=== PATIENT | female | born 1955 | race Caucasian/White ===

== ENCOUNTER 2016-07-23 09:32 | Emergency (ER) | payer OTHER ==
[~2016-07-23] VITALS: Ht 154.9 cm; Wt 76.2 kg
[~2016-07-23 09:32] MED LIST: FLEXERIL10 MG PO; HYDROCODONE/ACE1 TA1 PO; MEDROL4 M2 PO
--- NOTE | 2016-07-23 09:36 | ED HEADACHE COMPLAINT ---
History of Present Illness General Chief Complaint: Fall Stated Complaint: FALL/HEADACHE Source: patient, family, old records, EMS Exam Limitations: no limitations Vital Signs & Intake/Output Vital Signs & Intake/Output Vital Signs Date Time Temp Pulse Resp B/P Pulse O2 O2 Flow FiO2 Ox Delivery Rate 07/23 1054 97.0 07/23 1041 98.2 94 18 164/80 100 Ventilator 100% 07/23 0947 98 Room Air 07/23 0934 96.1 86 18 140/66 97 Room Air Allergies Coded Allergies: Penicillins (Severe, ANAPHYLACTIC 07/23/16) Reconcile Medications CYCLOBENZAPRINE HCL (Flexeril) 10 MG TAB 1 TAB PO Q8P PRN SPASMS CYCLOBENZAPRINE HCL (Flexeril) 10 MG TAB 1 TAB PO TID SPASMS Avoid operating motor vehicle or heavy machinery Hydrochlorothiazide 12.5 MG CAPSULE 1 CAP PO DAILY BP (Reported) HYDROCODONE/ACETAMINOPHEN (Hydrocodon-Acetaminophen 5-325) 1 TAB TAB 1-2 TAB PO Q8P PRN PAIN HYDROCODONE/ACETAMINOPHEN (Hydrocodon-Acetaminophen 5-325) 1 TAB TAB 1-2 TAB PO Q6P PRN PAIN Methylprednisolone. (Medrol) 4 MG TAB.DS.PK 0 PO DAILY ALLERGIC REACTINO USE DIRECTED Rosuvastatin Calcium (Crestor) 5 MG TABLET 1 TAB PO DAILY CHOLESTEROL ( Reported) Topiramate 25 MG TABLET 1 TAB PO BID WT LOSS (Reported) Triage Nurses Notes Reviewed? yes Onset: Abrupt Duration: hour(s): (2), constant Timing: recent history Quality/Severity: moderate, severe, achy, constant Severity Numbers: 7 Head Injury Location: frontal (left) No Modifying Factors: none Associated Symptoms: SYNCOPE IN BATHROOM AFTER HEADACHE BEGAN HPI: 61 year old female history of htn, hld presents emergency room brought in by ambulance. According to the patient she developed sudden onset of a left-sided headache that came on at 8 AM this morning while at work. She states she had a coworker drive her home when she had a witnessed syncopal episode. the patient was awake on ems arrival. According to the patient's she has been at her baseline mentally. There was no other injury the patient denies any other complaints of pain at this time, no neck or back pain. She denies any vomiting however reports positive nausea. She has not taken anything for her headache, according to the patient she denies history of migraines or headaches in the past fever no chills no vision changes. There are no modifying factors or associated symptoms (ELODIA ROBINS) Past History Travel History Traveled to [place] past 21 day No Medical History Any Pertinent Medical History? 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 No (ELODIA ROBINS) Review of Systems Review of Systems Constitutional: Reports: see HPI. All Other Systems: Reviewed and Negative Comments Review of systems: See HPI, All other systems negative. Constitutional, no chills no fever, no malaise HEENT: No visual changes no sore throat no congestion, no ear pain Cardiovascular: No chest pain , no palpitation , Skin, no jaundice no rashes, no change in skin Respiratory: No dyspnea no cough no sputum no hemoptysis GI: nausea no vomiting, no diarrhea, : No dysuria No hematuria, no frequency, no discharge Muscle skeletal: No joint pain, no joint swelling, no back pain, no neck pain, Neurologic: No numbness no confusion, headache Psych: No stress no anxiety no depression,. Heme/endocrine: No bruising no bleeding Immunology: No lymphadenopathy, (ELODIA ROBINS) Physical Exam Physical Exam General Appearance: well developed/nourished, alert, awake Cranial Nerves: normal hearing, normal speech, PERRL Comments: Well-developed well-nourished person in no acute distress Head/Face: Atraumatic, no maxillary/frontal sinus tenderness, no facial swelling , no scalp tendnerss, no hematoma, no ecchymosis, no facial bruising Eyes: PERRL, EOMI, no conjunctival injection. No nystagmus Ear:External auditory canal and Tympanic membranes clear, no erythema, no FB.No hemotypanum Nose: atraumatic.Normal inspection: No bleeding, no septal hematoma Throat: Moist mucous membranes.Pharynx normal. No pharyngeal erythema/exudate seen. No stridor/drooling or assymetry. No swelling or edema. Neck: Supple, no lymphadenopathy, FROM Back: Nontender, no CVA tenderness. Full range of motion Cardiovascular: Regular rate and rhythms no murmurs rubs Respiratory: No respiratory distress. Patient speaking in full complete sentences. Breath sounds clear to auscultation bilaterally: NO W/R/R Abdomen: Soft, nontender nondistended Extremity: No edema, full range of motion of extremities 5 out of 5 strength noted to bilateral upper and lower extremities Neuro: Alert oriented x3, motor sensory normal, cranial nerves II through XII grossly intact. There were no obvious focal neurologic abnormalities. Skin: No appreciable rash on exposed skin, skin is warm and dry. Psych: Mood and affect is normal, memory and judgment is normal. Core Measures Severe Sepsis Present: No Septic Shock Present: No (IRMA GUEVARA,ELODIA) Progress Differential Diagnosis: cluster COSTA, IC mass/tumor, intracranial Hem., meningitis , migraine COSTA, musculoskeletal pain, sinusitis, subarach. Hem., tension COSTA Plan of Care: Subarachnoid hemorrhage seen on CT, patient then seized after returning from CT scan. Patient intubated without incident. I informed family of patients updated status. meds as above. patient transferred to [place] for neurosurgical management. labs ordered, old records reviewed, tylenol 1g iv, zofran 4mg iv ordered.pt awake and alert at this time ct ordered 1015 d/w the pt and her family the ct results, pt remains awake and oriented x 3 , callled placed to neurosurg 1025: i was called to room as pt began seizing. ativan 2mg iv ordered d/w dr saha room to [facility], ativan 2mg iv, keppra 500mg iv, etomidate vec for RSI by dr ferreira d/w neurosurg dr silva advised pt transferred d/w dr dai trauma at [place] agrees with plan, and meds on board advised no further intervention meds needed at this time, pt will be ER to ER transfer (ELODIA ROBINS) Diagnostic Imaging: Viewed by Me: CT Scan. Discussed w/RAD: CT Scan. Radiology Impression: PATIENT: OSMANI QUINN PRESENT AGE: 61 PATIENT ACCOUNT NO: [id number] : 59 LOCATION: ER ORDERING PHYSICIAN: ELODIA GUEVARA SERVICE DATE: 07/23/16 EXAM TYPE: CAT - CT HEAD WO IV CONTRAST EXAMINATION: CT HEAD WITHOUT CONTRAST CLINICAL INFORMATION: Headache. COMPARISON: None. TECHNIQUE: Contiguous axial imaging was performed from the skull base to vertex without intravenous administration of contrast. DLP: 600.71 mGy-cm FINDINGS: There is extensive subarachnoid blood predominantly in the suprasellar cisterns (asymmetrically more prominent on the left) and in the interhemispheric fissure anteriorly. A more focal area of hyperdensity is seen in the lateral left suprasellar cistern/sylvian fissure, which may be consistent with focal hemorrhage versus an aneurysm of the left posterior communicating artery or at the left internal carotid artery bifurcation. There is subarachnoid hemorrhage also noted in the left greater than right paramesencephalic cisterns, superior cerebellar cistern on the left and in the interpeduncular fossa. There are subdural components along the left frontal and temporal lobes and along the left tentorium. There may be small amount of hemorrhage in the fourth ventricle. At present, the ventricles are normal in size. There is no evidence of an acute territorial infarct. No abnormal mass effect or midline shift is seen. López to white matter differentiation is well preserved. Brain parenchymal attenuation is unremarkable. The osseous structures and soft tissues are normal. There are atheromatous calcifications of the cavernous internal carotid arteries. The visualized mastoid air cells and paranasal sinuses are well-aerated. IMPRESSION: 1. There is extensive subarachnoid hemorrhage predominantly in the suprasellar cistern and more prominent on the left; the origin may be an aneurysm of the left posterior communicating artery or at the bifurcation of the left internal carotid artery. This could be further evaluated with CTA of the head. 2. There are subdural collections over the left frontal and temporal lobes and along the left tentorium. 3. The ventricles are normal in size at present. 4. This critical result was discussed with Elodia Howard by telephone on 07/23/2016 at 10:30 AM and it was ascertained that the content and urgency of the report was understood at the time of direct communication. DICTATED BY: SAAD SALINAS MD DATE/TIME DICTATED:07/23/161021 PAPER CORE MACHINE OPERATOR:SONIA DATE/TIME TRANSCRIBED:07/23/161021 CONFIDENTIAL, DO NOT COPY WITHOUT APPROPRIATE AUTHORIZATION. <Electronically signed in Other Vendor System> SIGNED BY: SAAD SALINAS MD 07/23/16 1038 Initial ED EKG: nsr at 80, normal axis, no acute st seg changes (ELODIA ROBINS) Plan of Care: Subarachnoid hemorrhage seen on CT, patient then seized after returning from CT scan. Patient intubated without incident. I informed family of patients updated status. meds as above. patient transferred to [place] for neurosurgical management. (KEVIN FERREIRA MD) Departure Departure Time of Disposition: 1037 Disposition: OTHER [facility] (ACUTE) Condition: Stable Clinical Impression Primary Impression: SAH (subarachnoid hemorrhage) Referrals: CANDY FELIX MD (PCP/Family) Departure Forms: Customer Survey General Discharge Information (ELODIA ROBINS) PA/PLASTIC MIXER Co-Sign Statement Statement: ED Attending supervision documentation- [X] I saw and evaluated the patient. I have also reviewed all the pertinent lab results and diagnostic results. I agree with the findings and the plan of care as documented in the PA's/PLASTIC MIXER's documentation. [X] I have reviewed the ED Record and agree with the PA's/PLASTIC MIXER's documentation. [] Additions or exceptions (if any) to the PAs/PLASTIC MIXER's note and plan are summarized below: [] (KEVIN FERREIRA MD) Procedures Intubation Time of Intubation: 1025 Intubation Method: orotracheal Tube Size (cm): 7.5 Medications: ETOMIDATE, ATIVAN Breath Sounds After Intubation: equal Intubation Complications: no complications Post Intubation Xray? No (PATIENT TRANSFERRED TO [facility]) (KEVIN FERREIRA MD) Critical Care Note Critical Care Note Critical Care Time: 30-74 min (ELODIA ROIBNS)
[2016-07-23] MEDS ORDERED: HYDROCHLOROTH12.5 M3 PO (09:55)
[2016-07-23] MEDS ORDERED: TOPIRAMATE25 M2 PO (09:59)
[2016-07-23] MEDS ORDERED: CRESTOR5 M1 PO (10:00)
[2016-07-23 10:01] LABS: ABSOLUTE BASOPHIL COUNT 0.1 /CUMM (0.0-0.2); ABSOLUTE EOSINOPHIL COUNT 0.1 /CUMM (0.0-0.7); ABSOLUTE GRANULOCYTE CT 11.7 /CUMM (1.4-6.5); ABSOLUTE LYMPH COUNT 1.8 /CUMM (1.2-3.4); ABSOLUTE MONOCYTE COUNT 0.7 /CUMM (0.10-0.60); BASOPHIL % 0.4 % (0.0-2.0); EOSINOPHIL % 0.5 % (0-5); GRANULOCYTE % 81.4 % (42.2-75.2); HEMATOCRIT 42.9 % (37-47); MEAN CORPUSCULAR HGB 31.9 PG (27.0-31.0); MEAN CORPUSCULAR VOLUME 93.9 FL (81.0-99.0); MEAN PLATELET VOLUME 8.1 FL (7.4-10.4); PLATELET COUNT 295 /CUMM (130-400); RBC DISTRIBUTION WIDTH 12.4 % (11.5-14.5); RED BLOOD CELL CT 4.57 /CUMM (4.20-5.40); WHITE BLOOD CELL COUNT 14.3 /CUMM (4.8-10.8)
[2016-07-23 10:10] LABS: PT 11.3 SEC (9.4-12.5)
--- NOTE | 2016-07-23 10:38 | CT SCAN REPORT ---
EXAMINATION: CT HEAD WITHOUT CONTRAST CLINICAL INFORMATION: Headache. COMPARISON: None. TECHNIQUE: Contiguous axial imaging was performed from the skull base to vertex without intravenous administration of contrast. DLP: 600.71 mGy-cm FINDINGS: There is extensive subarachnoid blood predominantly in the suprasellar cisterns (asymmetrically more prominent on the left) and in the interhemispheric fissure anteriorly. A more focal area of hyperdensity is seen in the lateral left suprasellar cistern/sylvian fissure, which may be consistent with focal hemorrhage versus an aneurysm of the left posterior communicating artery or at the left internal carotid artery bifurcation. There is subarachnoid hemorrhage also noted in the left greater than right paramesencephalic cisterns, superior cerebellar cistern on the left and in the interpeduncular fossa. There are subdural components along the left frontal and temporal lobes and along the left tentorium. There may be small amount of hemorrhage in the fourth ventricle. At present, the ventricles are normal in size. There is no evidence of an acute territorial infarct. No abnormal mass effect or midline shift is seen. López to white matter differentiation is well preserved. Brain parenchymal attenuation is unremarkable. The osseous structures and soft tissues are normal. There are atheromatous calcifications of the cavernous internal carotid arteries. The visualized mastoid air cells and paranasal sinuses are well-aerated. IMPRESSION: 1. There is extensive subarachnoid hemorrhage predominantly in the suprasellar cistern and more prominent on the left; the origin may be an aneurysm of the left posterior communicating artery or at the bifurcation of the left internal carotid artery. This could be further evaluated with CTA of the head. 2. There are subdural collections over the left frontal and temporal lobes and along the left tentorium. 3. The ventricles are normal in size at present. 4. This critical result was discussed with Sushant Howard by telephone on 07/23/2016 at 10:30 AM and it was ascertained that the content and urgency of the report was understood at the time of direct communication.
[2016-07-23 10:41] VITALS: BP 164/80
== END 2016-07-23 10:53 | disposition short-term general hospital (02) ==
LOC: ERH 09:32
PROVIDERS: Physician Assistant Medical
DX: I60.9 Nontraumatic subarachnoid hemorrhage, unspecified (principal); I10 Essential (primary) hypertension; M79.7 Fibromyalgia
CPT/HCPCS: 1387; 93005; 93010; 94799; 96374; 96375; 99291; G0480; J0131; J1953; J2405

== ENCOUNTER 2018-01-03 16:27 | Emergency (ER) | payer OTHER ==
[~2018-01-03] VITALS: Ht 154.9 cm; Wt 77.6 kg
[~2018-01-03 16:27] MED LIST changes: +CRESTOR5 M1 PO; +HYDROCHLOROTH12.5 M3 PO; +SERTRALINE HCL25 MG PO; +TOPAMAX25 M3 PO; +TOPIRAMATE25 M2 PO
[2018-01-03 16:30] VITALS: BP 142/77
--- NOTE | 2018-01-03 17:41 | RADIOLOGY REPORT ---
EXAMINATION: RIGHT FOOT AND ANKLE 6 VIEWS CLINICAL INFORMATION: Right-sided ankle pain after fall. COMPARISON: None. TECHNIQUE: AP, lateral, oblique views of the right foot were obtained in addition to AP, lateral and oblique views of the right ankle. FINDINGS: There are no fractures or dislocations. There is no significant soft tissue swelling. No ankle joint effusion is identified. There is mild degenerative change at the first MTP joint. There is a small plantar surface calcaneal spur. IMPRESSION: No fractures or dislocations. Mild degenerative change. Small calcaneal spur.
--- NOTE | 2018-01-03 18:16 | ED GENERAL ADULT ---
See Addendum History of Present Illness General Chief Complaint: Foot or Ankle Injury Stated Complaint: RT FOOT PAIN S/P TRIP AND FALL Source: patient, family Exam Limitations: no limitations Vital Signs & Intake/Output Vital Signs & Intake/Output Vital Signs Date Time Temp Pulse Resp B/P B/P Pulse O2 O2 Flow FiO2 Mean Ox Delivery Rate 01/03 1630 98.1 110 18 142/77 96 Room Air Allergies Coded Allergies: Penicillins (Severe, ANAPHYLACTIC 07/23/16) Reconcile Medications Rosuvastatin Calcium (Crestor) 5 MG TABLET 1 TAB PO DAILY CHOLESTEROL ( Reported) Sertraline HCl 25 MG TABLET 1 TAB PO DAILY DEPRESSION (Reported) Topiramate (Topamax) 25 MG TABLET 1 TAB PO TID SEIZURES (Reported) Triage Note: PT STATES THAT SHE TRIPPED OVER HER DOG AT 0500 AND HURT HER R FOOT OUTER ASPECT.DECLINES MEDS AT TRIAGE Triage Nurses Notes Reviewed? yes Onset: Abrupt Duration: hour(s): Timing: single episode today HPI: 62-year-old female with a history of hypertension and fibromyalgia presenting with right foot and ankle pain status post tripping over her dog this morning. Patient states that she struck her foot on the floor she fell and landed on the right side of her body. Denies hedged LOC. Denies numbness or paresthesias. (Amada Dalton) Past History Travel History Traveled to [place] past 21 day No Medical History Any Pertinent Medical History? 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 No (Amada Dalton) Review of Systems Review of Systems Constitutional: Reports: no symptoms. EENTM: Reports: no symptoms. Respiratory: Reports: no symptoms. Cardiovascular: Reports: no symptoms. GI: Reports: no symptoms. Genitourinary: Reports: no symptoms. Musculoskeletal: Reports: see HPI. Skin: Reports: no symptoms. Neurological/Psychological: Reports: no symptoms. Hematologic/Endocrine: Reports: no symptoms. Immunologic/Allergic: Reports: no symptoms. All Other Systems: Reviewed and Negative (Amada Dalton) Physical Exam Physical Exam General Appearance: well developed/nourished, no apparent distress, alert, awake , comfortable Head: atraumatic, normal appearance Eyes: Bilateral: normal appearance, PERRL, EOMI. Ears, Nose, Throat: normal ENT inspection Neck: normal inspection, full range of motion, no midline tenderness Respiratory: normal breath sounds, chest non-tender, lungs clear Cardiovascular: regular rate/rhythm Gastrointestinal: soft, non-tender Back: normal inspection, normal range of motion, no vertebral tenderness Neurologic/Psych: exam of the right foot there is tenderness to palpation over the lateral aspect, understood active range of motion at the ankle joint, the foot is neurovascularly intact with 2+ distal pulses, able to bear weight, but ambulates with a limp favoring the left side. Skin: intact, normal color, warm/dry Core Measures ACS in differential dx? No CVA/TIA Diagnosis: No Sepsis Present: No Sepsis Focused Exam Completed? No (Amada Dalton) Progress Differential Diagnoses I considered the following diagnoses in my evaluation of the patient: [Foot contusion versus foot fracture versus ankle fracture versus ankle sprain versus dislocation] Plan of Care: Orders Procedure Date/time Status Durable Medical Equipment 01/03 1815 Active X-ray unremarkable for any acute injury Patient requesting to be placed in [place] for comfort Offered prescription for pain medication, but states she will use over-the- counter pain medications Counseled on supportive care and strict return precautions. Will follow-up with her PMD for reevaluation Initial ED EKG: none (Amada Dalton) Departure Departure Disposition: HOME OR SELF CARE Condition: Stable Clinical Impression Primary Impression: Contusion of right foot Referrals: Alan Allen MD (PCP/Family) Additional Instructions: Use Tylenol or ibuprofen as needed for pain. Apply ice to help alleviate swelling. Follow-up with your primary care provider for reevaluation. Return to the emergency department for any normal worsening symptoms. Departure Forms: Customer Survey General Discharge Information (Amada Dalton) PA/RESTUARANT CREW WORKER Co-Sign Statement Statement: ED Attending supervision documentation- [] I saw and evaluated the patient. I have also reviewed all the pertinent lab results and diagnostic results. I agree with the findings and the plan of care as documented in the PA's/RESTUARANT CREW WORKER's documentation. [X] I have reviewed the ED Record and agree with the PA's/RESTUARANT CREW WORKER's documentation. [] Additions or exceptions (if any) to the PAs/RESTUARANT CREW WORKER's note and plan are summarized below: [] (Alexa MONTERROSO,William Macario) Critical Care Note Critical Care Note Critical Care Time: non-applicable (Raul GUEVARA,Amada)
== END 2018-01-03 18:26 ==
LOC: ERH 16:27
DX: S90.31XA Contusion of right foot, initial encounter (principal); W01.0XXA Fall on same level from slipping, tripping and stumbling without subsequent striking against object, initial encounter; Y92.9 Unspecified place or not applicable; Y93.9 Activity, unspecified
CPT/HCPCS: 73610-RT; 73630-RT